=== PATIENT | male | born 1985 | race Caucasian/White ===

== ENCOUNTER 2019-02-10 10:58 | Emergency (ER) | payer OTHER ==
[~2019-02-10] VITALS: Ht 175.3 cm; Wt 93.8 kg
--- NOTE | 2019-02-10 12:15 | NUR ---
report received from task WENDY Shah.
--- NOTE | 2019-02-10 12:16 | NUR ---
NEDRA Zapata at bedside.
[2019-02-10] MEDS ORDERED: ONDANSETRON 2MG/ML, 2ML IVPush ONE (12:30)
[2019-02-10] MEDS ORDERED: FAMOTIDINE 20 MG/2 ML IV ONE (12:30)
[2019-02-10 12:47] LABS: BASOPHILS # (AUTO) 0.03 x10^3/uL (0-0.1); BASOPHILS % (AUTO) 0 % (0-1); EOSINOPHILS # (AUTO) 0.07 x10^3/uL (0-0.4); EOSINOPHILS % (AUTO) 1 % (1-7); LYMPHOCYTES # (AUTO) 2.31 x10^3/uL (1-3.4); LYMPHOCYTES % (AUTO) 24 % (22-44); MD NO; MEAN CORPUSCULAR HEMOGLOBIN 35.8 pg (27.5-34.5); MEAN CORPUSCULAR VOLUME 102.4 fL (81-97); MEAN PLATELET VOLUME 7.7 fL (7.4-10.4); MONOCYTES # (AUTO) 0.66 x10^3/uL (0.2-0.8); MONOCYTES % (AUTO) 7 % (2-9); NEUTROPHILS # (AUTO) 6.62 x10^3/uL (1.8-6.8); NEUTROPHILS % (AUTO) 68 % (42-75); PLATELET COUNT 249 x10^3/uL (130-400); RED BLOOD COUNT 4.52 x10^6/uL (4.38-5.82); RED CELL DISTRIBUTION WIDTH 12.9 % (9.4-14.8)
[2019-02-10 12:53] LABS: INTERNATIONAL NORMALIZED RATIO 0.99 (0.93-1.1); PROTHROMBIN TIME 10.4 Seconds (9.6-11.5)
[2019-02-10 12:57] LABS: ALANINE AMINOTRANSFERASE 39 U/L (12-78); ALBUMIN 4.3 g/dL (3.4-5.0); ANION GAP 7 mmol/L (5-15); CALCIUM 9.1 mg/dL (8.5-10.1); CHLORIDE 104 mmol/L (98-107); CREATININE 1.25 mg/dL (0.7-1.3)
[2019-02-10] MEDS ORDERED: ONDANSETRON 2MG/ML, 2ML ONE (12:58)
[2019-02-10 12:59] LABS: SALICYLATE LEVEL < 1.7 mg/dL (2.8-20.0)
[2019-02-10] MEDS ORDERED: FAMOTIDINE 20 MG/2 ML ONE (12:59)
[2019-02-10] MEDS ORDERED: MORPHINE SULFATE 4 MG/ML, 1ML ONE ×2 (12:59→13:55)
[2019-02-10 13:00] LABS: ALKALINE PHOSPHATASE 58 U/L (45-117); BILIRUBIN,TOTAL 1.2 mg/dL (0.2-1.0)
[2019-02-10] MEDS: MORPHINE SULFATE 4 MG/ML, 1ML IVPush PRN ×2 (13:01→14:02)
--- NOTE | 2019-02-10 13:58 | NUR ---
pt instructed to provide clean catch ua, pt up to bathroom, gait steady. pt requests second dose morphine for returning facial pain. pt a&o, resps even and unlabored.
--- NOTE | 2019-02-10 14:06 | NUR ---
pt back in bed, pt a&o, resps even and unlabored. all monitors in place, pt sinus sonya rate 50's with no ectopy. urine walked to lab.
[2019-02-10 14:34] LABS: MICROSCOPIC NOT IND
[2019-02-10 14:41] LABS: CULTURE INDICATED? NO
[2019-02-10] MEDS ORDERED: LORazepam 2 MG/ML, 1ML ONE (14:57)
[2019-02-10] MEDS ORDERED: LORazepam 2 MG/ML, 1ML IVPush ONE (15:00)
--- NOTE | 2019-02-10 15:03 | NUR ---
EDPA notified pt notes right facial pain not improved s/p morphine, ativan order received. report given to WENDY Camacho.
[2019-02-10 15:04] VITALS: BP 172/85
[2019-02-10] MEDS ORDERED: HYDROmorphone 1 MG/ML, 1ML INJ IM ONE (15:30)
[2019-02-10] MEDS ORDERED: HYDROmorphone 1 MG/ML, 1ML VIAL ONE (15:40)
--- NOTE | 2019-02-10 16:39 | NUR ---
patient requested to speak with MD, MD aware. patient discharge education and discharge teaching given to patient. no noted acute distress, patient has safe taxi truck driver.
== END 2019-02-10 16:55 | disposition home or self-care (01) ==
LOC: ED 14:19
DX: R10.84 Generalized abdominal pain (principal); K02.9 Dental caries, unspecified
CPT/HCPCS: 36415; 74176; 80053; 80307; 81003; 83690; 85025; 85610; 96372; 96374; 96375; 96376; 99284; J1170; J2060; J2270; J2405; J3490